=== PATIENT | male | born 1930 | race Native Hawaiian/Other Pacific Islander ===

== ENCOUNTER 2016-05-21 10:17 | Emergency (ER) | payer MEDICARE, OTHER ==
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
[2016-05-21 12:25] LABS: Basophils % (A) 1 %; CH 31.1; CHCM 32.2; Eosinophils # (A) 0.1 k/uL (0-0.7); Eosinophils % (A) 1 %; HCT 37.1 % (39.0-53.0); HGB 11.9 gm/dL (13.0-17.5); Luc # (Auto) 0.12; Luc % (Auto) 2; Lymphocytes # (A) 0.8 k/uL (1.0-4.8); Lymphocytes % (A) 12 %; Mean Platelet Volume 8.1; Monocytes # (A) 0.5 k/uL (0-1.0); Monocytes % (A) 7 %; Neutrophils # (A) 5.1 k/uL (1.3-7.7); Neutrophils % (A) 78 %; RBC 3.83 m/uL (4.30-5.90); RDW 15.1 % (11.5-15.5); WBC 6.6 k/uL (3.8-10.6); WBC (Perox) 6.46
--- NOTE | 2016-05-21 12:25 | XR ---
EXAMINATION TYPE: XR chest 2V DATE OF EXAM: 05/21/2016 12:20 PM COMPARISON: 03/21/2016 INDICATION: Cough TECHNIQUE: Frontal and lateral views of the chest are obtained. FINDINGS: The heart size is normal. The pulmonary vasculature is normal. The lungs are clear. There appears to be some hyperinflation. Previous right lower lobe infiltrate i s not present currently. Vascular calcifications within the aorta. IMPRESSION: 1. No acute pulmonary process.
[2016-05-21 12:27] LABS: MCV 96.9 fL (80.0-100.0)
[2016-05-21 12:34] LABS: ALT 38 U/L (21-72); AST 34 U/L (17-59); Alkaline Phosphatase 128 U/L (38-126); Anion Gap 7 mmol/L; Blood Urea Nitrogen 27 mg/dL (9-20); Calcium 8.8 mg/dL (8.4-10.2); Carbon Dioxide 31 mmol/L (22-30); Chloride 103 mmol/L (98-107); Glucose 112 mg/dL (74-99); Non-African American GFR(MDRD) >60 (>60 ml/min/1.73 sqM); Potassium 5.3 mmol/L (3.5-5.1); Sodium 141 mmol/L (137-145); Total Bilirubin 0.4 mg/dL (0.2-1.3); Total Protein 6.9 g/dL (6.3-8.2)
[2016-05-21] MEDS ORDERED: SODIUM CHLORIDE 0.9% 1,000 ML IV ONE (13:01)
[2016-05-21 15:19] LABS: INR 2.1 (<1.1); Prothrombin Time 20.1 sec (9.0-12.0)
[2016-05-21 15:39] VITALS: RESP 20
[2016-05-21 16:00] LABS: Anion Gap 7 mmol/L; Blood Urea Nitrogen 25 mg/dL (9-20); Calcium 8.2 mg/dL (8.4-10.2); Carbon Dioxide 29 mmol/L (22-30); Chloride 105 mmol/L (98-107); Glucose 135 mg/dL (74-99); Non-African American GFR(MDRD) >60 (>60 ml/min/1.73 sqM); Potassium 4.8 mmol/L (3.5-5.1); Sodium 141 mmol/L (137-145)
[2016-05-21 16:17] VITALS: BP 134/66; PULSE 74; TEMP 97
== END 2016-05-21 16:17 | disposition home or self-care (01) ==
LOC: EC 10:17
DX: R05 Cough (principal); R63.4 Abnormal weight loss; E46 Unspecified protein-calorie malnutrition; I10 Essential (primary) hypertension; I48.91 Unspecified atrial fibrillation; Z93.1 Gastrostomy status; Z88.0 Allergy status to penicillin; Z79.899 Other long term (current) drug therapy; Z79.01 Long term (current) use of anticoagulants; F17.210 Nicotine dependence, cigarettes, uncomplicated
CPT/HCPCS: 36415; 71020; 80048; 80053; 85025; 85610; 93005; 96360; 96361; 96374; 99284

== ENCOUNTER 2016-06-04 19:20 | Emergency (ER) | payer OTHER ==
[2016-06-04 19:46] VITALS: RESP 18
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
--- NOTE | 2016-06-04 21:56 | XR ---
EXAMINATION TYPE: XR KUB DATE OF EXAM: 06/04/2016 9:30 PM COMPARISON: NONE HISTORY: Feeding tube came out and was replaced. 10 mL Omnipaque 350 was delivered through a feeding tube and used for this x-ray examination TECHNIQUE: Postcontrast PEG tube supine radiograph FINDINGS: The bulk of the radiographic contrast is seen within a catheter and within the stomach opac ifying the gastric rugae. However, extending caudally from the tube is a tiny linear tract of apparent radiographic contr ast. It is difficult to assess its location on a single supine radiograph. It could be on top of the patient, or within the patient. This linear tract extends over the left psoas shadow, down to the L5 level. IMPRESSION: POSTCONTRAST STUDY.
[2016-06-04 22:13] VITALS: BP 140/78; PULSE 74; TEMP 97.8
== END 2016-06-04 22:30 | disposition home or self-care (01) ==
LOC: EC 19:20
DX: K94.23 Gastrostomy malfunction (principal); I10 Essential (primary) hypertension; M06.9 Rheumatoid arthritis, unspecified; F17.210 Nicotine dependence, cigarettes, uncomplicated; Z79.01 Long term (current) use of anticoagulants; Z79.899 Other long term (current) drug therapy; Z88.0 Allergy status to penicillin; Z88.2 Allergy status to sulfonamides; Z88.6 Allergy status to analgesic agent
CPT/HCPCS: 43760; 74000; 99283

== ENCOUNTER 2016-06-05 02:15 | Emergency (ER) | payer OTHER ==
[2016-06-05 02:22] VITALS: RESP 16; TEMP 97.8
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
[2016-06-05 04:24] VITALS: PULSE 93
[2016-06-05 04:41] VITALS: BP 158/93
== END 2016-06-05 04:23 | disposition home or self-care (01) ==
LOC: EC 02:15
DX: K94.23 Gastrostomy malfunction (principal); I10 Essential (primary) hypertension; Z79.899 Other long term (current) drug therapy; Z79.01 Long term (current) use of anticoagulants; Z88.0 Allergy status to penicillin; Z88.2 Allergy status to sulfonamides; Z88.8 Allergy status to other drugs, medicaments and biological substances; F17.200 Nicotine dependence, unspecified, uncomplicated
CPT/HCPCS: 43760; 99282

== ENCOUNTER 2016-06-06 10:27 | Emergency (ER) | payer OTHER ==
[2016-06-06 10:32] VITALS: RESP 20
[2016-06-06] MEDS ORDERED: LIDOCAINE URO-JET JELLY 2% 5 ML KIT URETHRAL ONE (11:22)
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
--- NOTE | 2016-06-06 13:22 | XR ---
EXAMINATION TYPE: XR KUB portable DATE OF EXAM: 06/06/2016 1:10 PM COMPARISON: 917 HISTORY: Check tube placement TECHNIQUE: Single view FINDINGS: A single view shows injection of contrast into the gastrostomy tube. Contrast flows freely into the stomach and duodenum. There is no evidence of extravasation. IMPRESSION: The gastrostomy tube is in good position in the stomach.
[2016-06-06 14:00] VITALS: BP 149/87; PULSE 84; TEMP 98
== END 2016-06-06 13:59 | disposition home or self-care (01) ==
LOC: EC 10:27
DX: K94.23 Gastrostomy malfunction (principal); M06.9 Rheumatoid arthritis, unspecified; I10 Essential (primary) hypertension; F17.210 Nicotine dependence, cigarettes, uncomplicated; Z79.01 Long term (current) use of anticoagulants; Z79.1 Long term (current) use of non-steroidal anti-inflammatories (NSAID); Z79.899 Other long term (current) drug therapy; Z88.0 Allergy status to penicillin; Z88.2 Allergy status to sulfonamides; Z88.6 Allergy status to analgesic agent; Y83.3 Surgical operation with formation of external stoma as the cause of abnormal reaction of the patient, or of later complication, without mention of misadventure at the time of the procedure
CPT/HCPCS: 74000; 99282; 43760; Q9967

== ENCOUNTER 2016-06-07 13:11 | Emergency (ER) | payer OTHER ==
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
[2016-06-07 14:33] VITALS: PULSE 78
[2016-06-07] MEDS ORDERED: HYDROcodone/APAP 5-325MG 1 EACH TAB PO STA (14:35)
--- NOTE | 2016-06-07 15:10 | XR ---
EXAMINATION TYPE: XR KUB DATE OF EXAM: 06/07/2016 2:57 PM COMPARISON: NONE INDICATION: PEG tube fell out TECHNIQUE: Single view abdomen FINDINGS: There is a normal bowel gas pattern. Psoas margins are normal. No organomegaly is present. Vascular calcifications within the aorta. Contrast is passed through a PEG tube. PEG tube enters into the stomach. Contrast is within the stoma ch. Some old contrast within the colon. IMPRESSION: 1. Contrast present within the stomach through the PEG tube
[2016-06-07 15:38] VITALS: BP 153/90; RESP 18; TEMP 98.3
== END 2016-06-07 15:36 | disposition home or self-care (01) ==
LOC: EC 13:11
DX: K94.23 Gastrostomy malfunction (principal); M06.9 Rheumatoid arthritis, unspecified; I10 Essential (primary) hypertension; Z87.891 Personal history of nicotine dependence; Z79.01 Long term (current) use of anticoagulants; Z79.1 Long term (current) use of non-steroidal anti-inflammatories (NSAID); Z79.899 Other long term (current) drug therapy; Z88.0 Allergy status to penicillin; Z88.2 Allergy status to sulfonamides; Z88.6 Allergy status to analgesic agent; Y83.3 Surgical operation with formation of external stoma as the cause of abnormal reaction of the patient, or of later complication, without mention of misadventure at the time of the procedure
CPT/HCPCS: 74000; 99284

== ENCOUNTER 2016-11-14 22:57 | Inpatient (IN) | payer OTHER, MEDICARE ==
[2016-11-15] MEDS: SODIUM CHLORIDE 0.9% 1,000 ML IV SCH ×2 (07:39→08:25)
[2016-11-15] MEDS: MEROPENEM 500 MG in SODIUM CHLORIDE 0.9% 50 ML IVPB SCH ×3 (08:17→22:59)
[2016-11-15 08:56] LABS: Anisocytosis Slight; Basophils # (A) 0.1 k/uL (0-0.2); Basophils % (A) 1 %; CH 30.4; CHCM 32.2; Eosinophils # (A) 0.1 k/uL (0-0.7); Eosinophils % (A) 2 %; HCT 33.9 % (39.0-53.0); HDW 2.74; HGB 11.1 gm/dL (13.0-17.5); Luc # (Auto) 0.19; Luc % (Auto) 2; Lymphocytes # (A) 1.2 k/uL (1.0-4.8); Lymphocytes % (A) 13 %; MCH 31.1 pg (25.0-35.0); MCHC 32.8 g/dL (31.0-37.0); MCV 94.6 fL (80.0-100.0); Mean Platelet Volume 7.2; Monocytes # (A) 0.7 k/uL (0-1.0); Monocytes % (A) 8 %; Neutrophils % (A) 75 %; RBC 3.59 m/uL (4.30-5.90); RDW 16.2 % (11.5-15.5); WBC 9.3 k/uL (3.8-10.6); WBC (Perox) 9.64
[2016-11-15 09:19] LABS: Anion Gap 9 mmol/L; Blood Urea Nitrogen 21 mg/dL (9-20); Carbon Dioxide 29 mmol/L (22-30); Chloride 101 mmol/L (98-107); Glucose 87 mg/dL (74-99); Non-African American GFR(MDRD) >60 (>60 ml/min/1.73 sqM); Sodium 139 mmol/L (137-145)
--- NOTE | 2016-11-15 09:27 | XR ---
EXAMINATION TYPE: XR chest 1V portable DATE OF EXAM: 11/15/2016 COMPARISON: 07/30/2016 HISTORY: Shortness of breath TECHNIQUE: 2 view chest submitted. FINDINGS: Scattered senescent parenchymal changes noted. Hyperinflation compatible with COPD. New right lower lobe infiltrate with associated pleural effusion. The left lung is clear. Heart size is stable. Mediastinal structures are stable and grossly unremarkable. No evidence for hilar prominence. Degenerative changes dorsal spine. IMPRESSION: 1. New right lower lobe infiltrate with associated pleural effusion. The left lung is clear.
[2016-11-15] MEDS ORDERED: LACTULOSE 20 GM/30 ML CUP PO PRN (11:31)
[2016-11-15] MEDS ORDERED: IPRATROPIUM-ALBUTEROL 3 ML NEB INHALATION PRN (11:31)
[2016-11-15] MEDS ORDERED: AMMONIUM LACTATE 12% CREAM 140 GM TUBE TOPICAL PRN (11:31)
[2016-11-15] MEDS ORDERED: JEVITY 1.5 CAL PEG/G-TUBE SCH (11:45)
[2016-11-15] MEDS ORDERED: NITROGLYCERIN 0.4MG/HR PATCH TRANSDERM SCH (11:45)
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
[2016-11-15] MEDS ORDERED: FUROSEMIDE 10 MG/ML 2 ML VIAL IV ONE (12:00)
[2016-11-15 13:30] VITALS: BMI 17.8
[2016-11-15] MEDS: APIXABAN 2.5 MG TABLET PO SCH (21:48)
[2016-11-15] MEDS: TAMSULOSIN 0.4 MG CAP.ER.24H PO SCH (21:48)
[2016-11-15] MEDS: METOPROLOL TARTRATE 25 MG TAB PO SCH (21:48)
[2016-11-16] MEDS: SODIUM CHLORIDE 0.9% 1,000 ML IV SCH (05:33)
[2016-11-16] MEDS: MEROPENEM 500 MG in SODIUM CHLORIDE 0.9% 50 ML IVPB SCH ×3 (07:20→23:11)
[2016-11-16] MEDS: PANTOPRAZOLE 40 MG TABLET PO SCH (07:22)
[2016-11-16] MEDS: APIXABAN 2.5 MG TABLET PO SCH ×2 (07:22→21:03)
[2016-11-16] MEDS: FUROSEMIDE 20 MG TAB PO SCH (07:22)
[2016-11-16] MEDS: METOPROLOL TARTRATE 25 MG TAB PO SCH ×2 (07:23→21:03)
[2016-11-16 08:42] LABS: Anisocytosis Slight; CH 30.3; CHCM 31.8; HCT 38.1 % (39.0-53.0); HDW 2.69; HGB 12.2 gm/dL (13.0-17.5); Hypochromasia Slight; MCH 30.5 pg (25.0-35.0); MCHC 31.9 g/dL (31.0-37.0); MCV 95.6 fL (80.0-100.0); Mean Platelet Volume 7.6; RBC 3.98 m/uL (4.30-5.90); RDW 16.3 % (11.5-15.5); WBC 11.9 k/uL (3.8-10.6)
[2016-11-16 08:58] LABS: Anion Gap 8 mmol/L; Blood Urea Nitrogen 35 mg/dL (9-20); Calcium 8.9 mg/dL (8.4-10.2); Carbon Dioxide 33 mmol/L (22-30); Chloride 103 mmol/L (98-107); Glucose 128 mg/dL (74-99); Non-African American GFR(MDRD) >60 (>60 ml/min/1.73 sqM); Potassium 3.8 mmol/L (3.5-5.1); Sodium 144 mmol/L (137-145)
--- NOTE | 2016-11-16 10:39 | ECHOF ---
Referral Reason:new afib, hx chf MEASUREMENTS -------- HEIGHT: 182.9 cm WEIGHT: 63.5 kg BP: 142/99 RVIDd: 3.0 cm (< 3.3) IVSd: 1.4 cm (0.6 - 1.1) LVIDd: 3.3 cm (3.9 - 5.3) LVPWd: 1.4 cm (0.6 - 1.1) IVSs: 1.8 cm LVIDs: 2.7 cm LVPWs: 1.6 cm LA Diam: 3.7 cm (2.7 - 3.8) LAESV Index (A-L): 67.32 ml/m Ao Diam: 3.6 cm (2.0 - 3.7) AV Cusp: 1.3 cm (1.5 - 2.6) LA Diam: 3.7 cm (2.7 - 3.8) MV EXCURSION: 19.089 mm (> 18.000) MV EF SLOPE: 85 mm/s (70 - 150) EPSS: 0.8 cm MV E Ahsan: 0.79 m/s MV DecT: 210 ms MV A Ahsan: 0.03 m/s MV E/A Ratio: 28.75 AV maxP.53 mmHg AV meanP.33 mmHg AR PHT: 503 ms RAP: 5.00 mmHg RVSP: 40.65 mmHg FINDINGS -------- Undetermined rhythm. This was a technically adequate study. There is moderate concentric left ventricular hypertrophy. Overall left ventricular systolic function is low-normal with, an EF between 50 - 55 %. The right ventricle is normal in size. LA is severely dilated >40 ml/m2 The right atrial size is normal. There is mild to moderate aortic valve sclerosis. There is mild aortic regurgitation. There is mild aortic stenosis present. Peak/mean gradient across the Aortic Valve is 19.53mmHg / 10.33mmHg. Mild mitral annular calcification present. Mild mitral regurgitation is present. [id number] tricuspid regurgitation present. There is mild pulmonary hypertension. The right ventricular systolic pressure, as measured by Doppler, is 40.65mmHg. Trace/mild (physiologic) pulmonic regurgitation. The aortic root size is normal. There is no pericardial effusion. CONCLUSIONS -------- 1. There is moderate concentric left ventricular hypertrophy. 2. [id number] tricuspid regurgitation present. 3. There is mild pulmonary hypertension. 4. The right ventricular systolic pressure, as measured by Doppler, is 40.65mmHg. 5. Trace/mild (physiologic) pulmonic regurgitation. 6. There is no pericardial effusion. 7. Overall left ventricular systolic function is low-normal with, an EF between 50 - 55 %. 8. LA is severely dilated >40 ml/m2 9. There is mild to moderate aortic valve sclerosis. 10. There is mild aortic regurgitation. 11. There is mild aortic stenosis present. 12. Peak/mean gradient across the Aortic Valve is 19.53mmHg / 10.33mmHg. 13. Mild mitral annular calcification present. 14. Mild mitral regurgitation is present. MUSIC CRITIC: Ruchi Zhang RDCS
--- NOTE | 2016-11-16 10:45 | XR ---
EXAMINATION TYPE: XR chest 1V DATE OF EXAM: 11/16/2016 HISTORY: chf. REFERENCE: Previous study dated 11/15/2016. FINDINGS: The lungs are overinflated. The heart is mildly enlarged. There is unfolding and ectasia of the thoracic aorta. The aortic knuckle is deviating the trachea towards the right. There is a right-sided effusion. There is some right basilar airspace disease. This has not changed s ignificantly from previous. IMPRESSION: 1. COPD. 2. CARDIOMEGALY. 3. SMALL RIGHT PLEURAL EFFUSION. 4. RIGHT BASILAR AIRSPACE DISEASE.
--- NOTE | 2016-11-16 10:51 | CONS ---
DATE OF SERVICE: 11/15/2016 REASON FOR CONSULTATION: Sepsis. HISTORY OF PRESENT ILLNESS: The patient is an 86-year-old male with past medical history significant for recurrent pneumonia. Patient currently does have PEG tube for feeding and was at the [place] [facility]; however, the patient apparently started vomiting yesterday and afterward the patient did have fever for which the patient was evaluated at [facility]. Apparently the patient was noticed to have right lower lobe pneumonia and his vital signs were not stable per the family member at present at the bedside and the patient was stent to the [facility] for further evaluation where x-ray was repeated and did show new right lower lobe infiltrate with associated pleural effusion. Because of his PENICILLIN ALLERGY and requiring admission to the hospital he was started on broad-spectrum IV antibiotics in the form of meropenem and vancomycin. I was asked to see the patient for further recommendations. The patient is awake, alert; however, not a very good historian. When asked specially for any chest pain or cough he denied. No further nausea or vomiting has been noticed. The patient denies any abdominal pain and no diarrhea and has been tolerating his tube feed. Patient apparently did have previous history of streptococcus hominis blood cultures but looking at his microbiological data blood cultures from ( ) last time he had blood cultures done here and those were negative. REVIEW OF SYSTEMS: CONSTITUTIONAL: Positive for weakness along with fever. EYES: No complaint. ENT: No complaint. RESPIRATORY: As per HPI. CARDIOVASCULAR: No complaint. GENITOURINARY: No complaint. GASTROINTESTINAL: As per HPI. MUSCULOSKELETAL: No complaint. INTEGUMENTARY: No complaint. PSYCHOLOGICAL: No complaint. ENDOCRINE: No complaint. NEUROLOGICAL: No complaint. PAST MEDICAL HISTORY: Rheumatoid arthritis, hypertension, recurrent aspiration pneumonia. PAST SURGICAL HISTORY: Right leg surgery, PEG tube placement and right hip surgery. SOCIAL HISTORY: Remote history of smoking. No drinking or drug use. FAMILY HISTORY: No pertinent findings noticed. ALLERGIES: PENICILLIN, SULFA ALONG WITH IBUPROFEN. Medications include the patient is currently on Tylenol, DuoNeb, Lasix, lactulose, meropenem 500 q.8. He is on Protonix. On examination: Blood pressure 140/82 with pulse 109. Temperature 97.8. He is 91 % on 5-L nasal cannula. General description is an elderly male, lying in bed in no distress. No tachypnea or accessory muscle of respiration use. HEENT examination shows slight pallor. Oral mucous membrane is dry. NECK: Trachea is central. No thyromegaly. LUNGS: Unlabored breathing. Decreased breath sounds in the bases. No wheeze or crackles. HEART: S1, S2 regular rate and rhythm. ABDOMEN: Soft, no tenderness. No guarding, no rigidity. PEG tube site looks clean. EXTREMITIES: No edema feet. SKIN: No rash or mass palpable. NEUROLOGICAL: Patient is awake, alert, oriented x2. Mood and affect normal. LABS: Hemoglobin is 11.1, white count 9.3, BUN 21, creatinine 0.6. ( ) mentioned above. DIAGNOSTIC IMPRESSION AND PLAN: 1. Patient admitted to the hospital with fever with new right lower lobe pneumonia in patient who did have episode of vomiting prior to that and likely an episode of aspiration pneumonia in patient who is a [place] [facility] resident has been in and out of the hospital in particular for the resistant gram- negative pathogen. 2. Patient does have PENICILLIN AND SULFA ALLERGY that does limit the number of antibiotics that can be safely used. PLAN: 1. Obtain sputum for gram stain and culture sensitivity. 2. Patient will continue on meropenem in view of his PENICILLIN ALLERGY and to cover for gram negative while awaiting for the culture finalize. 3. No need for vancomycin and will be discontinued at this point. 4. We will follow on his clinical condition and cultures to further adjust medications if needed. Thank you for this consultation. I will follow this patient along with you. JUAN PABLO
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
[2016-11-16] MEDS: ACETAMINOPHEN TAB 325 MG TAB PO PRN ×2 (15:26→21:07)
--- NOTE | 2016-11-16 17:50 | P.PN ---
Subjective Date of service: 11/16/16 Progress Note D[address] for Dr. Roldan. Interval History:86-year-old resident of [facility] came in after he had a fever in the facility and patient was sent into 8 lower lobe. His UA is essentially within normal limits patient was completely confused yesterday which is improving at this point of time. Patient has multiple admissions for pneumonia. Patient has aspirations multiple times patient is a PEG tube in place. Patient apparently has an arthritic surgery since then his clinical condition has worsened patient is thin built and cachectic remains full code and has a PEG tube. Patient was started on meropenem and the vancomycin. Other significant thing is patient in the past had positive blood cultures with staph hominis which is probably contamination I do not believe this is contributing to his sepsis anyways blood cultures were obtained. Patient clinically appears to have some pulmonary edema because of which I'm going give her [place] given a dose of Lasix, IV fluids were discontinued and patient will resume on 20 mg of Lasix patient does have history of chronic diastolic dysfunction the past. patient had elevated BNP similar to last admission. 11/16/16 Maintained on nebulized bronchidailators, Merrem. Oxygen requirement increased this am, along with increased WBC. CXR reports no significant change. States breathing better, no increased shortness of breath.Occasional mild productive cough with white/clear sputum. Denies CP, palpitations, or increased shortness of breathing.afebrile.Echo reporting low normal Ef of 50-55%, mild to moderate tricuspid regurgitation,mimld to moderate aortic valve sclerosis. Objective - Vital Signs Vital signs: Vital Signs Temp 97.8 F 11/16/16 15:00 Pulse 85 11/16/16 15:00 Resp 22 11/16/16 15:00 BP 125/81 11/16/16 15:00 Pulse Ox 97 11/16/16 15:00 Intake & Output 11/15/16 11/16/16 11/16/16 18:59 06:59 18:59 Intake Total 120 120 130 Output Total 1000 1150 600 Balance -880 -1030 -470 Weight 58.06 kg 63.503 kg Intake: Tube Feeding 120 120 130 Output: Urine 1000 1150 600 Other: Voiding Method Indwelling Catheter Indwelling Catheter Indwelling Catheter - Exam GENERAL: Sitting Up in bed,Alert & Oriented X 2, no acute distress HEENT: Pupils are round and equally reacting to light. EOMI. No scleral icterus. No conjunctival pallor. Normocephalic, atraumatic. No pharyngeal erythema. No thyromegaly. CARDIOVASCULAR: irregular,. No murmurs, rubs, or gallops. PULMONARY: CLear to auscultation. Occasional final bibasilar scattered crackles ABDOMEN: Soft, nontender, nondistended, normoactive bowel sounds. Peg tube present.No palpable organomegaly. MUSCULOSKELETAL: No joint swelling or deformity. EXTREMITIES: No cyanosis, clubbing, or pedal edema. NEUROLOGICAL: Gross neurological examination did not reveal any new focal deficits. SKIN: No rashes. Microbiology 11/15/16 08:55 Blood Blood Culture - Preliminary No Growth after 24 hours 11/15/16 08:24 Blood Blood Culture - Preliminary No Growth after 24 hours 11/15/16 07:35 Urine,Catheterized Urine Culture - Preliminary - Labs CBC & Chem 7: 11/16/16 08:27 11/16/16 08:24 Labs: Abnormal Lab Results - Last 24 Hours (Table) 11/16/16 11/16/16 Range/Units 08:24 08:27 WBC 11.9 H (3.8-10.6) k/uL RBC 3.98 L (4.30-5.90) m/uL Hgb 12.2 L (13.0-17.5) gm/dL Hct 38.1 L (39.0-53.0) % RDW 16.3 H (11.5-15.5) % Carbon Dioxide 33 H (22-30) mmol/L BUN 35 H (9-20) mg/dL Glucose 128 H (74-99) mg/dL Microbiology - Last 24 Hours (Table) 11/15/16 08:55 Blood Culture - Preliminary Blood No Growth after 24 hours 11/15/16 08:24 Blood Culture - Preliminary Blood No Growth after 24 hours 11/15/16 07:35 Urine Culture - Preliminary Urine,Catheterized Assessment and Plan Plan: #1 sepsis: Secondary to possible pneumonia may be aspiration pneumonia #2 chronic generalized deconditioning and extremely poor functionality and aspirations in the past for which patient has a PEG tube in place: Instructions need to be provided to the [facility] that his head and need to be elevated all times patient is on continuous PEG tube feedings which will be continued here. #3, heart failure chronic diastolic dysfunction with with mild acute exacerbation, 50-55% #4 hypertension #5 chronic aspirations. #6 moderate protein calorie malnutrition,BMI 19.5 #7 Chronic persistant afib. Plan:Continue on current medication regime, monitoring, and symptomatic treatment. Antibiotics as per ID.IV fluids discontinued. Home dose of Oral Lasix resumed. Maintain strict .aspiration precautions. Wean down oxygen, currently maintaining o2 saturation of 97% on 5LNC O2. Close monitoring of electrolytes, WBC, with repeat labs ordered for am. Cardiology rec. noted. The impression and plan of care has been dictated as directed. : I performed a H&P examination of this patient and discussed the same with the dictator. I agree with the dictator's note. Any additional findings/opinions/ etc. will be noted.
[2016-11-16] MEDS: TAMSULOSIN 0.4 MG CAP.ER.24H PO SCH (21:03)
[2016-11-17] MEDS: MEROPENEM 500 MG in SODIUM CHLORIDE 0.9% 50 ML IVPB SCH ×2 (07:17→16:03)
[2016-11-17] MEDS: APIXABAN 2.5 MG TABLET PO SCH ×2 (07:34→21:48)
[2016-11-17] MEDS: METOPROLOL TARTRATE 25 MG TAB PO SCH ×2 (07:34→21:48)
[2016-11-17] MEDS: PANTOPRAZOLE 40 MG TABLET PO SCH (07:34)
[2016-11-17] MEDS: FUROSEMIDE 20 MG TAB PO SCH (07:34)
[2016-11-17] MEDS: ACETAMINOPHEN TAB 325 MG TAB PO PRN ×2 (07:39→22:04)
--- NOTE | 2016-11-17 09:54 | PN ---
DATE OF SERVICE: 11/16/2016 Reason for followup is aspiration pneumonia. INTERVAL HISTORY: The patient is afebrile. Has been breathing comfortably. Denies significant chest pain. Occasional cough. No abdominal pain. ( ). No diarrhea. On examination, blood pressure 125/81 with a pulse of 85, temperature 97.8. He is 97% on 5 L nasal cannula. General description is an elderly male, lying in bed in no distress. RESPIRATORY SYSTEM: Unlabored breathing. Coarse breath sounds at the bases. No wheeze. HEART: S1 and S2, regular rate and rhythm. ABDOMEN: Soft, no tenderness. LABS: Hemoglobin 12.2, white count of 11.9 with a BUN of 35, creatinine 0.7. Blood culture negative so far. DIAGNOSTIC IMPRESSION AND PLAN: Patient with right lower lobe pneumonia, likely aspiration etiology. We will try to bring sputum to narrow down his antibiotics. Keep the patient on meropenem at this point. Continue supportive care. MTDD
[2016-11-17] MEDS ORDERED: FUROSEMIDE 10 MG/ML 4 ML VIAL IV STA (12:40)
--- NOTE | 2016-11-17 14:14 | P.PN ---
Progress Note - Text INTERVAL HISTORY: The patient is a 86-year-old male who presented with aspiration pneumonia and was found to be in atrial fibrillation. At first it was unclear if this is new or old, but was discovered in paperwork to be a chronic condition. Per his the patient at one time was on Coumadin. It appears he has not been receiving at the assisted. He was started on Eliquis for anticoagulation and metoprolol for rate control. Upon examination today he is seen lying in bed in no acute distress. He denies chest pain, shortness of breath, dizziness, nausea, vomiting or palpitations. He also denies any signs of bleeding, hematuria, black/bloody stools, nosebleeds or gum bleeding. Although he remains pleasantly confused. PHYSICAL EXAMINATION: Blood pressure 145/86, heart rate 78, respirations 16, temp 97.5, 94 % on 5 liters nasal cannula. HEART: S1, S2 normal. No murmur, no gallop. Regular rate and rhythm. LUNGS: Clear to auscultation. NECK: Supple. ABDOMEN: Soft, non-tender, positive bowel sounds. EXTREMITIES: 2+ peripheral pulses, no edema. LAB DATA: Hemoglobin 12.2, potassium 3.8, BUN 35, creatinine 0.70, he remains in atrial fibrillation on continuous quality assurance monitor final. FINAL IMPRESSION: 1. Chronic atrial fibrillation, rate controlled. 2. Aspiration pneumonia. 3. Diastolic heart failure, chronic. 4. Moderate left ventricular hypertrophy 5. Mild pulmonary hypertension with right ventricular pressure 40.65 mmHg PLAN: Echocardiogram reveals maintained left ventricular function with ejection fraction 50-55%. Patient has remained with a controlled rate with addition of metoprolol. He has also shown no overt signs of bleeding at this time. We recommend he continue on current regimen. We will continue to see the patient on an as-needed basis. Please feel free to contact us if needed. We thank you for allowing us to take part in the care of this patient. Nurse Practitioner note has been reviewed, I agree with a documented findings and plan of care. Patient was seen and examined.
--- NOTE | 2016-11-17 15:46 | P.DS ---
Providers Date of admission: 11/15/16 01:47 Expected date of discharge: 11/18/16 Attending physician: Tati Roldan Consults: 11/15/16 11:37 Consult Physician Routine Consulting Provider: Kim Garcia Consult Reason/Comments: pneum, history staph hominus Do you want consulting provider notified?: Yes 11/15/16 17:18 Consult Physician Urgent Consulting Provider: Erick Milner Consult Reason/Comments: new afib w/RVR, coagulation recomendations Do you want consulting provider notified?: Yes Primary care physician: Stated None Hospital Course: Final Diagnoses: #1 sepsis: Secondary to right lower lobe pneumonia pneumonia, suspect aspiration pneumonia in a patient with a PEG tube #2 chronic generalized deconditioning and extremely poor functionality and aspirations in the past for which patient has a PEG tube in place: Instructions need to be provided to the [facility] that his head and need to be elevated all times patient is on continuous PEG tube feedings which will be continued there. #3, heart failure chronic diastolic dysfunction with with mild acute exacerbation, 50-55% #4 hypertension #5 chronic aspirations. #6 moderate protein calorie malnutrition,BMI 19.5 #7 Chronic persistant afib. On Eliquis. Hospital course:86-year-old resident of [facility] medical history admitted with sepsis with right lower lobe pneumonia, suspect aspiration pneumonia in a patient with a PEG tube, with history of multiple admissions for pneumonia. Evaluated by infectious disease and maintained on meropenem and vancomycin, initially along with nebulized bronchodilators. Blood cultures negative so far, vancomycin discontinued. Evaluated by cardiology regarding atrial fibrillation, with beta noe and Eliquis added to med regime .Echo reporting low normal Ef of 50-55%, mild to moderate tricuspid regurgitation,mild to moderate aortic valve sclerosis. Oxygen weaned to 3 L nasal cannula, maintaining O2 sats of 95%. Significant clinical improvement. Patient has been cleared for discharge by infectious disease and cardiology. Patient is being discharged to [facility] in a stable condition with guarded prognosis. Microbiology 11/15/16 08:55 Blood Blood Culture - Preliminary No Growth after 48 hours 11/15/16 08:24 Blood Blood Culture - Preliminary No Growth after 48 hours 11/15/16 07:35 Urine,Catheterized Urine Culture - Final The impression and plan of care has been dictated as directed as a scribe. : I performed a H&P examination of this patient and discussed the same with the dictator. I agree with the dictator's note. Any additional findings/opinions/ etc. will be noted. Patient Condition at Discharge: Stable Plan - Discharge Summary New Discharge Prescriptions: New Acetaminophen Tab [Tylenol] 650 mg PO Q4H PRN tab PRN Reason: Mild Pain Or Fever > 100.5 Ammonium Lactate Cream [Lac-Hydrin 12% Cream] 1 applic TOPICAL BID PRN dose PRN Reason: Dry Skin Apixaban [Eliquis] 2.5 mg PO BID tab Furosemide [Lasix] 20 mg PO DAILY tab Metoprolol Tartrate [Lopressor] 25 mg PO BID tab Pantoprazole [Protonix] 40 mg PEG/G-TUBE AC-BRKFST tab Moxifloxacin HCl [Avelox] 400 mg PO DAILY #10 tablet Continue Tamsulosin [Flomax] 0.4 mg PEG/G-TUBE HS Multivitamins, Thera Liquid [Theragran Liquid (formulary)] 5 ml PEG/G-TUBE DAILY Lactulose 10 gm PEG/G-TUBE DAILY PRN PRN Reason: Constipation Artificial Tears-Hypromellose [Artificial Tear Drops] 2 drops BOTH EYES DAILY PRN PRN Reason: Dry Eye(S) Changed Ipratropium-Albuterol Nebulize [Duoneb 0.5 mg-3 mg/3 ml Soln] 3 ml INHALATION QID #0 ampul.neb Discharge Medication List Lactulose 10 gm PEG/G-TUBE DAILY PRN 05/21/16 [History] Multivitamins, Thera Liquid [Theragran Liquid (formulary)] 5 ml PEG/G-TUBE DAILY 05/21/16 [History] Tamsulosin [Flomax] 0.4 mg PEG/G-TUBE HS 05/21/16 [History] Artificial Tears-Hypromellose [Artificial Tear Drops] 2 drops BOTH EYES DAILY PRN 11/16/16 [History] Acetaminophen Tab [Tylenol] 650 mg PO Q4H PRN tab 11/17/16 [Rx] Ammonium Lactate Cream [Lac-Hydrin 12% Cream] 1 applic TOPICAL BID PRN dose [Rx] Apixaban [Eliquis] 2.5 mg PO BID tab 11/17/16 [Rx] Furosemide [Lasix] 20 mg PO DAILY tab 11/17/16 [Rx] Ipratropium-Albuterol Nebulize [Duoneb 0.5 mg-3 mg/3 ml Soln] 3 ml INHALATION QID #0 ampul.neb 11/17/16 [Rx] Metoprolol Tartrate [Lopressor] 25 mg PO BID tab 11/17/16 [Rx] Moxifloxacin HCl [Avelox] 400 mg PO DAILY #10 tablet 11/17/16 [Rx] Pantoprazole [Protonix] 40 mg PEG/G-TUBE AC-BRKFST tab 11/17/16 [Rx] Activity/Diet/Wound Care/Special Instructions: Strict aspiration precautions at all times, head of bed up at 45 3 L nc O2 Diet:PEG Tube: 2cal HN at 50 MLS per hour continuous, 30 MLS free water every 4 hours CBC, BMP in 3 days
--- NOTE | 2016-11-17 15:52 | P.PN ---
Subjective Date of service: 11/17/16 Progress Note D[address] for Dr. Rlodan. Interval History:86-year-old [facility] came in after he had a fever in the facility and patient was sent into 8 lower lobe. His UA is essentially within normal limits patient was completely confused yesterday which is improving at this point of time. Patient has multiple admissions for pneumonia. Patient has aspirations multiple times patient is a PEG tube in place. Patient apparently has an arthritic surgery since then his clinical condition has worsened patient is thin built and cachectic remains full code and has a PEG tube. Patient was started on meropenem and the vancomycin. Other significant thing is patient in the past had positive blood cultures with staph hominis which is probably contamination I do not believe this is contributing to his sepsis anyways blood cultures were obtained. Patient clinically appears to have some pulmonary edema because of which I'm going give her [place] given a dose of Lasix, IV fluids were discontinued and patient will resume on 20 mg of Lasix patient does have history of chronic diastolic dysfunction the past. patient had elevated BNP similar to last admission. 11/16/16 Maintained on nebulized bronchidailators, Merrem. Oxygen requirement increased this am, along with increased WBC. CXR reports no significant change. States breathing better, no increased shortness of breath.Occasional mild productive cough with white/clear sputum. Denies CP, palpitations, or increased shortness of breathing.afebrile.Echo reporting low normal Ef of 50-55%, mild to moderate tricuspid regurgitation,mimld to moderate aortic valve sclerosis. 11/17/2016 breathing improving, oxygen weaned down to 3 L nasal cannula, maintaining O2 sats of 95%. Occasional nonproductive cough. Afebrile. Denies chest pain, palpitations. Objective - Vital Signs Vital signs: Vital Signs Temp 97.5 F L 11/17/16 15:00 Pulse 87 11/17/16 15:00 Resp 22 11/17/16 15:00 BP 147/83 11/17/16 15:00 Pulse Ox 95 11/17/16 15:00 Intake & Output 11/16/16 11/17/16 11/17/16 18:59 06:59 18:59 Intake Total 130 150 150 Output Total 1100 300 Balance -970 150 -150 Weight 61.235 kg Intake: Oral 0 Tube Feeding 130 150 150 Output: Urine 1100 300 Other: Voiding Method Indwelling Catheter Indwelling Catheter Indwelling Catheter # Bowel Movements 1 - Exam GENERAL: Sitting Up in bed,Alert & Oriented X 2, no acute distress HEENT: Pupils are round and equally reacting to light. EOMI. No scleral icterus. No conjunctival pallor. Normocephalic, atraumatic. No pharyngeal erythema. No thyromegaly. CARDIOVASCULAR: irregular,. No murmurs, rubs, or gallops. PULMONARY: CLear to auscultation. Occasional final bibasilar scattered crackles , no wheezing ABDOMEN: Soft, nontender, nondistended, normoactive bowel sounds. Peg tube present.No palpable organomegaly. MUSCULOSKELETAL: No joint swelling or deformity. EXTREMITIES: No cyanosis, clubbing, or pedal edema. NEUROLOGICAL: Gross neurological examination did not reveal any new focal deficits. SKIN: No rashes. Microbiology 11/15/16 08:55 Blood Blood Culture - Preliminary No Growth after 48 hours 11/15/16 08:24 Blood Blood Culture - Preliminary No Growth after 48 hours 11/15/16 07:35 Urine,Catheterized Urine Culture - Final - Labs CBC & Chem 7: 11/16/16 08:27 11/16/16 08:24 Labs: Microbiology - Last 24 Hours (Table) 11/15/16 08:55 Blood Culture - Preliminary Blood No Growth after 48 hours 11/15/16 08:24 Blood Culture - Preliminary Blood No Growth after 48 hours 11/15/16 07:35 Urine Culture - Final Urine,Catheterized Assessment and Plan Plan: #1 sepsis: Secondary to right lower lobe pneumonia suspect aspiration pneumonia #2 chronic generalized deconditioning and extremely poor functionality and aspirations in the past for which patient has a PEG tube in place: Instructions need to be provided to the [facility] that his head and need to be elevated all times patient is on continuous PEG tube feedings which will be continued here. #3, heart failure chronic diastolic dysfunction with with mild acute exacerbation, 50-55% #4 hypertension #5 chronic aspirations. #6 moderate protein calorie malnutrition,BMI 19.5 #7 Chronic persistant afib. Anticoagulated on Eliquis Plan:Continue on current medication regime, monitoring, and symptomatic treatment. Maintain Strict aspiration precautions. Discharge planning in progress for tomorrow to [facility]. Antibiotics as per infectious disease. Further recommendations to follow. The impression and plan of care has been dictated as directed. : I performed a H&P examination of this patient and discussed the same with the dictator. I agree with the dictator's note. Any additional findings/opinions/ etc. will be noted.
--- NOTE | 2016-11-17 18:40 | PN ---
DATE OF SERVICE: 11/17/16 REASON FOR FOLLOW UP: Aspiration pneumonia. INTERVAL HISTORY: The patient is afebrile. He has been breathing comfortably. He has been tolerating his continuous feeds. Denies having any abdominal pain. No further vomiting has been noticed or any diarrhea. On examination, blood pressure 145/86, pulse 78, temperature 97.5, he is 94% on 5 L nasal cannula. General description is an elderly male lying in the bed, in no distress. Respiratory: Unlabored breathing. Some coarse breath sounds bilaterally. Heart: S1, S2 regular rate and rhythm. Abdomen soft, no tenderness. Labs: Blood cultures so far negative. Sputum was not collected. No CBC was done today. DIAGNOSTIC IMPRESSION AND PLAN: 1. Patient with right lower lobe pneumonia in a patient who did have a fever. Episode of vomiting prior to that, likely a component of aspiration pneumonia. No worsening on the follow up ( ) Currently on Meropenem. We will try to obtain a sputum to ( ) antibiotic, however, if no sputum is collected and the patient continues to improve, plan to finish therapy with Avelox ( ) daily for another ten days ( ). 2. Continue supportive care. MTDD
[2016-11-17] MEDS: TAMSULOSIN 0.4 MG CAP.ER.24H PO SCH (21:48)
[2016-11-18] MEDS: MEROPENEM 500 MG in SODIUM CHLORIDE 0.9% 50 ML IVPB SCH ×2 (00:13→08:31)
[2016-11-18 07:33] VITALS: BP 151/90; PULSE 91; RESP 18; TEMP 97.5
[2016-11-18] MEDS: METOPROLOL TARTRATE 25 MG TAB PO SCH (08:31)
[2016-11-18] MEDS: PANTOPRAZOLE 40 MG TABLET PO SCH (08:31)
[2016-11-18] MEDS: APIXABAN 2.5 MG TABLET PO SCH (08:31)
[2016-11-18] MEDS: FUROSEMIDE 20 MG TAB PO SCH (08:31)
== END 2016-11-18 09:03 | DRG 871 ==
LOC: 4MS4W 11-15 01:47
PROVIDERS: ADMIT Internal Medicine; ATTEND Internal Medicine
DX: A41.9 Sepsis, unspecified organism (principal); J69.0 Pneumonitis due to inhalation of food and vomit; I50.33 Acute on chronic diastolic (congestive) heart failure; G92 Toxic encephalopathy; R64 Cachexia; E44.0 Moderate protein-calorie malnutrition; I48.1 Persistent atrial fibrillation; I08.2 Rheumatic disorders of both aortic and tricuspid valves; Z68.1 Body mass index [BMI] 19.9 or less, adult; Z93.1 Gastrostomy status; I11.0 Hypertensive heart disease with heart failure; M06.9 Rheumatoid arthritis, unspecified; N42.9 Disorder of prostate, unspecified; H91.90 Unspecified hearing loss, unspecified ear; Z79.899 Other long term (current) drug therapy; Z87.01 Personal history of pneumonia (recurrent); Z87.891 Personal history of nicotine dependence; Z88.6 Allergy status to analgesic agent; Z88.2 Allergy status to sulfonamides; Z88.0 Allergy status to penicillin; W06.XXXA Fall from bed, initial encounter
CPT/HCPCS: 71010; 80048; 83605; 85025; 85027; 87040; 87086; 93005; 93306